=== PATIENT | female | born 1995 ===

== ENCOUNTER 2018-09-02 13:01 | Emergency (ER) | payer OTHER ==
--- NOTE | 2018-09-02 13:42 | UC ---
Upper Extremity HPI - HPI Summary HPI Summary: 22 yo female presents with left elbow bruising. She tells me that 6 days ago she slipped on the ice and fell onto her left arm/elbow. Had some pain, but still had good range of motion. Since that time has had swelling and bruising to the area, but ROM and pain have significantly decreased. She is here today because she is concerned that it is still bruised. She has not been applying ice , elevating, or taking anything OTC for her symptoms. She denies numbness or tingling. - History of Current Complaint Chief Complaint: UCUpperExtremity Stated Complaint: ARM INJURY Time Seen by Provider: 09/02/18 13:37 Hx Obtained From: Patient Hx Last Menstrual Period: 08/09/18 Onset/Duration: Sudden Onset Severity Initially: Mild Severity Currently: Mild Pain Intensity: 2 Pain Scale Used: 0-10 Numeric - Allergies/Home Medications Allergies/Adverse Reactions: Allergies Allergy/AdvReac Type Severity Reaction Status Date / Time No Known Allergies Allergy Verified 09/02/18 13:28 Home Medications: Home Medications Norethindrone AC-Eth Estradiol [Junel 1 mg-20 Mcg Tablet] 1 tab PO DAILY [History Confirmed 09/02/18] PMH/Surg Hx/FS Hx/Imm Hx - Additional Past Medical History Additional PMH: None - Surgical History Surgical History: None - Family History Known Family History: Positive: None - Social History Occupation: Student Lives: Dormitory/Roommates Alcohol Use: Occasionally Substance Use Type: None Smoking Status (MU): Never Smoked Tobacco Review of Systems All Other Systems Reviewed And Are Negative: Yes Constitutional: Positive: Negative Skin: Positive: Bruising - left elbow Respiratory: Positive: Negative Cardiovascular: Positive: Negative Neurovascular: Positive: Negative Musculoskeletal: Positive: Negative Neurological: Positive: Negative Psychological: Positive: Negative Physical Exam - Summary Physical Exam Summary: GENERAL: NAD. WDWN. No pain distress. SKIN: Left elbow overlying medial epicondyle there is mild edema and mild ecchymosis that is purple, green, and yellow in color. No warmth or open wound. CHEST: No accessory muscle use. Breathing comfortably and in no distress. CV: Pulses intact radial and ulnar. Cap refill <2seconds MSK: LEFT ELBOW: FROM. NTTP. Strength 5/5 including recovery rn strength. Mild edema overlying medial epicondyle. NEURO: Alert. Sensations intact hand and all fingers. PSYCH: Age appropriate behavior. Triage Information Reviewed: Yes Vital Signs: Initial Vital Signs Temp 98 F 09/02/18 13:25 Pulse 81 09/02/18 13:25 Resp 17 09/02/18 13:25 BP 122/76 09/02/18 13:25 Pulse Ox 100 09/02/18 13:25 Vital Signs Reviewed: Yes Upper Extremity Course/Dx - Course Course Of Treatment: XR: IMPRESSION: THERE IS A JOINT EFFUSION PRESENT. NO FRACTURE IS SEEN. RECOMMEND A FOLLOW-UP. X-RAY STUDY OF THE ELBOW IN 7-10 DAYS TO EXCLUDE A RADIOGRAPHICALLY OCCULT FRACTURE. Suspect hematoma of left elbow. Advised to RICE and take ibuprofen for discomfort. F/u with formerly [facility]. - Differential Dx/Diagnosis Provider Diagnosis: Hematoma Discharge - Sign-Out/Discharge Documenting (check all that apply): Patient Departure All imaging exams completed and their final reports reviewed: Yes - Discharge Plan Condition: Stable Disposition: HOME Patient Education Materials: Hematoma (ED) Referrals: No Primary Care Phys,NOPCP [Primary Care Provider] - Additional Instructions: If you develop a fever, shortness of breath, chest pain, new or worsening symptoms - please call your PCP or go to the ED. Please apply ice to your elbow a few times a day to reduce pain and swelling. This should continue to improve with time. - Billing Disposition and Condition Condition: STABLE Disposition: Home
== END 2018-09-02 14:32 | disposition home or self-care (01) ==
LOC: UCEAST 13:01
DX: S50.02XA Contusion of left elbow, initial encounter (principal); W00.0XXA Fall on same level due to ice and snow, initial encounter; Y92.9 Unspecified place or not applicable
CPT/HCPCS: 99202; G0463